=== PATIENT | female | born 1960 | race African-American/Black ===

== ENCOUNTER 2019-05-16 12:10 | Emergency (ER) | payer OTHER ==
[~2019-05-16] VITALS: Ht 162.6 cm; Wt 72.0 kg
[~2019-05-16 12:10] MED LIST: DOCU-109 PO; IBUP-1060 PO; OXYC1TAB7 PO; ZOLP5TAB PO
[2019-05-16 12:42] VITALS: BP 146/89
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
[2019-05-16] MEDS ORDERED: METH-38 PO (13:34)
[2019-05-16] MEDS ORDERED: NAPR-683 PO (13:34)
== END 2019-05-16 13:40 | disposition home or self-care (01) ==
LOC: ER 12:10
DX: S16.1XXA Strain of muscle, fascia and tendon at neck level, initial encounter (principal); S39.012A Strain of muscle, fascia and tendon of lower back, initial encounter; R51 Headache; M54.2 Cervicalgia; H53.8 Other visual disturbances; D64.9 Anemia, unspecified; Z90.89 Acquired absence of other organs; Z90.49 Acquired absence of other specified parts of digestive tract; Z90.710 Acquired absence of both cervix and uterus; Z88.0 Allergy status to penicillin; Z98.51 Tubal ligation status; V89.2XXA Person injured in unspecified motor-vehicle accident, traffic, initial encounter; Y93.89 Activity, other specified; Y92.413 State road as the place of occurrence of the external cause; Y99.8 Other external cause status
CPT/HCPCS: 70450; 72125; 99285